=== PATIENT | female | born 1950 | race Caucasian/White ===

== ENCOUNTER 2017-07-05 19:11 | Emergency (ER) | payer MEDICAID ==
[~2017-07-05] VITALS: Ht 147.3 cm; Wt 136.1 kg
[2017-07-05 19:11] VITALS: BP_SYST 161
[2017-07-05] MEDS ORDERED: LIDOCAINE 2%, 20 ML MDV ONE (22:18)
[2017-07-05] MEDS ORDERED: LIDOCAINE 2%, 20 ML MDV INJ ONE (22:30)
[2017-07-05 23:48] VITALS: BP_SYST 146
== END 2017-07-05 23:48 | disposition home or self-care (01) ==
LOC: SED 19:11
DX: S93.114A Dislocation of interphalangeal joint of right lesser toe(s), initial encounter (principal); E11.9 Type 2 diabetes mellitus without complications; I10 Essential (primary) hypertension; H40.9 Unspecified glaucoma; M25.561 Pain in right knee; W19.XXXA Unspecified fall, initial encounter; Y93.89 Activity, other specified; Y92.89 Other specified places as the place of occurrence of the external cause; Y99.8 Other external cause status
CPT/HCPCS: 28660; 73564; 73660; 99284; J2001